=== PATIENT | female | born 2000 | race Two or more races ===

== ENCOUNTER → 2019-08-15 | Emergency (ER) | payer OTHER, SELFPAY ==
[~2019-08-15] VITALS: Ht 165.1 cm; Wt 56.7 kg
[2019-08-15 19:52] VITALS: BP 128/72
== END | disposition home or self-care (01) ==
LOC: ER 18:55
DX: U07.1 COVID-19 (principal); J40 Bronchitis, not specified as acute or chronic
CPT/HCPCS: 71045; 99284; C9803; U0003